=== PATIENT | female | born 1950 | race Two or more races ===

== ENCOUNTER 2021-01-26 06:32 | Day surgery (SDC) | payer OTHER ==
[~2021-01-26 06:32] MED LIST: AMLODIPINE-OLM1 EACH PO; FAMOTI PO; PROTONIX40 MG PO; [UNRECOGNIZED DRUG - OTHER] PO
[2021-01-26] MEDS ORDERED: ULTRACET PO (10:20)
[2021-01-26] MEDS ORDERED: MACROBID 100 M100 MG PO (10:20)
== END 2021-01-26 12:55 | disposition home or self-care (01) ==
LOC: CIR.AMB 06:32
PROVIDERS: ATTEND Obstetrics & Gynecology Gynecology
DX: N81.11 Cystocele, midline (principal); Z20.822 Contact with and (suspected) exposure to COVID-19